=== PATIENT | female | born 1990 | race Two or more races ===

== ENCOUNTER 2023-12-11 04:16 | Day surgery (SDC) | payer BC ==
[2023-12-05 10:47] VITALS: BMI 47.1
[2023-12-11] MEDS ORDERED: PROPOFOL 20 ML ONE (08:18)
[2023-12-11] MEDS ORDERED: MIDAZOLAM HCL 2 MG/2 ML SINGLE DOSE VIAL ONE (08:18)
[2023-12-11] MEDS ORDERED: DEXAMETHASONE SOD PHOSPHATE 4 MG/1 ML VIAL ONE (08:32)
[2023-12-11] MEDS ORDERED: ONDANSETRON 4 MG/2 ML VIAL ONE (08:32)
[2023-12-11] MEDS ORDERED: LIDOCAINE HCL/PF 2% SDV 5ML VIAL ONE (08:32)
[2023-12-11] MEDS ORDERED: METOCLOPRAMIDE HCL INJECTION 10 MG/2 ML VIAL ONE (08:32)
[2023-12-11] MEDS ORDERED: KETOROLAC TROMETHAMINE 30 MG/1 ML VIAL ONE (08:32)
[2023-12-11] MEDS ORDERED: ONDANSETRON 4 MG/2 ML VIAL IVPUSH PRN (08:47)
[2023-12-11] MEDS ORDERED: oxyCODONE HCL 5 MG TABLET PO PRN (08:47)
[2023-12-11] MEDS ORDERED: ACETAMINOPHEN INJECTION 100 ML IVPB ONE (09:09)
[2023-12-11] MEDS ORDERED: ACETAMINOPHEN 325 MG TABLET (FP) PO PRN (09:10)
[2023-12-11] MEDS ORDERED: DEXMEDETOMIDINE HCL 200 MCG/2 ML IVPB ONE (09:10)
[2023-12-11] MEDS ORDERED: IBUPROFEN 400 MG TABLET (FP) PO PRN (09:10)
[2023-12-11] MEDS ORDERED: LIDOCAINE 1%/EPI 1:100000 (20 ML MULTI DOSE VIAL) ONE (09:21)
[2023-12-11] MEDS: LIDOCAINE 1%/EPI 1:100000 (20 ML MULTI DOSE VIAL) IJ ONE ×3 (09:30)
[2023-12-11] MEDS: IODINE/POTASSIUM IODIDE 5%/10% 14 ML BOTTLE NR ONE (09:52)
[2023-12-11] MEDS: FERRIC SUBSULFATE 500 ML BOTTLE TP ONE (09:53)
[2023-12-11] MEDS: LACTATED RINGERS SOLUTION 1,000 ML IV SCH (10:37)
[2023-12-11 15:00] VITALS: BP 116/72; PULSE 76; RESP 20; TEMP 97.7
== END 2023-12-11 13:25 | disposition home or self-care (01) ==
LOC: JASU-SURG 04:16
PROVIDERS: ATTEND Obstetrics & Gynecology
PROC: 0UBC7ZX Excision of Cervix, Via Natural or Artificial Opening, Diagnostic (ICD-10-PCS; principal; 2023-12-11 09:00)
DX: N87.1 Moderate cervical dysplasia (principal)
CPT/HCPCS: 81025; 88305-TC; 88307-TC; 94760; J0131